=== PATIENT | male | born 1985 ===

== ENCOUNTER 2018-06-16 22:23 | Emergency (ER) | payer OTHER ==
[2018-06-16 22:32] VITALS: TEMP 98.5; BMI 26.3
--- NOTE | 2018-06-16 22:42 | ED PDOC ---
Arrival/HPI - General Chief Complaint: Substance Abuse Time Seen by Provider: 06/16/18 22:40 Historian: Patient - History of Present Illness Narrative History of Present Illness (Text): 06/16/18 22:41 33 year old male, with no significant past medical history, presents to the emergency department found by EMS on the street unresponsive s/p overdose. Patient was administered Narcan 2mg intranasally upon arrival. Patient became responsive in the Emergency room. Patient states he was drinking tonight and also admits to snorting a bag of heroin. Patient denies any complaints. Patient denies any fever, chills, chest pain, shortness of breath, nausea, vomiting, diarrhea, urinary symptoms, back pain, neck pain, headache, dizziness, or any other complaints. Symptom Onset: Gradual Symptom Course: Improving Activities at Onset: Light Context: Street Past Medical History - Provider Review Nursing Documentation Reviewed: Yes - Psychiatric Hx Substance Use: Yes (heroin today) Family/Social History - Physician Review Nursing Documentation Reviewed: Yes Family/Social History: No Known Family HX Smoking Status: Light Smoker < 10 Cigarettes Daily Hx Alcohol Use: Yes Frequency of alcohol use: Socially Hx Substance Use: Yes (heroin today) Allergies/Home Meds Allergies/Adverse Reactions: Allergies No Known Allergies Allergy (Verified 06/16/18 22:32) Review of Systems - Physician Review All systems were reviewed & negative as marked: Yes - Review of Systems Constitutional: absent: Fevers, Other (Chills) Respiratory: absent: SOB Cardiovascular: absent: Chest Pain Gastrointestinal: absent: Diarrhea, Nausea, Vomiting Genitourinary Male: absent: Dysuria, Frequency, Hematuria Musculoskeletal: absent: Back Pain, Neck Pain Neurological: absent: Headache, Dizziness Physical Exam - Physical Exam Narrative Physical Exam (Text): Gen: VS reviewed, alert, well developed, well nourished, nontoxic, mild distress. ENT: normal pharynx. Eye: EOMI, PERRL. Neck: no JVD, supple, no adenopathy. CV: Tachycardic, no rubs, no murmur, no gallops, S1, S2, pulses equal and strong. Pulm: Mild diffuse course breath sounds. no distress, clear to auscultation, no wheeze, no rhonchi, no rales. Abd: soft, nontender, no guarding, no rebound, no rigidity, normal bowel sounds. Ext: no edema. Skin: good color, no rash, no cyanosis. Psych: responds appropriately to questions, normal affect. Neuro: oriented x 3, CN2-12 intact grossly, motor intact, sensation intact. Vital Signs Reviewed: Yes Vital Signs Temp Pulse Resp BP Pulse Ox 06/16/18 22:31 98.5 F 102 H 14 128/67 92 L Temperature: Afebrile Blood Pressure: Normal Pulse: Tachycardic Respiratory Rate: Normal Medical Decision Making ED Course and Treatment: 06/16/18 22:41 Impression: 33 year old male presents for overdose after drinking tonight and snorting one bag of heroin. Plan: -- Chest X-ray -- Reassess and disposition Progress Notes: 06/17/18 00:31 patient was seen for heroin overdose, woke up after intranasal dose of narcan, patient not suicidal, patient remained stable throughout ED course and does not exhibit excessive drowsiness from heroin ingestion. Patient informed to seek help regarding substance abuse. - RAD Interpretation Narrative RAD Interpretations (Text): 06/17/18 00:31 cxr my read: no focal infiltrate, no ptx, no cardiomegaly Radiology Orders: 06/16/18 22:40 CXR [CHEST TWO VIEWS (PA/LAT)] [RAD] Stat - EKG Interpretation Interpreted by ED Physician: Yes - Scribe Statement The provider has reviewed the documentation as recorded by the Matty Arenas Provider Scribe Attestation: All medical record entries made by the Scribe were at my direction and personally dictated by me. I have reviewed the chart and agree that the record accurately reflects my personal performance of the history, physical exam, medical decision making, and the department course for this patient. I have also personally directed, reviewed, and agree with the discharge instructions and disposition. Disposition/Present on Arrival - Present on Arrival Any Indicators Present on Arrival: No History of DVT/PE: No History of Uncontrolled Diabetes: No Urinary Catheter: No History of Decub. Ulcer: No History Surgical Site Infection Following: None - Disposition Have Diagnosis and Disposition been Completed?: Yes Diagnosis: Heroin abuse Disposition: HOME/ ROUTINE Disposition Time: 00:32 Patient Plan: Discharge Condition: STABLE Discharge Instructions (ExitCare): Drug Abuse and Drug Addiction (DC) Prescriptions: Naloxone HCl [Narcan] 4 mg NS ONCE #2 spray Forms: [employer] Connect ([place]an)
[2018-06-17 01:12] VITALS: BP 116/52; PULSE 82; RESP 18; O2SAT 96
--- NOTE | 2018-06-17 09:05 | RAD ---
Date of service: 06/17/2018 HISTORY: pneumonia COMPARISON: No prior. TECHNIQUE: Chest PA and lateral FINDINGS: LUNGS: No active pulmonary disease. PLEURA: No significant pleural effusion identified. No pneumothorax apparent. CARDIOVASCULAR: Normal. OSSEOUS STRUCTURES: No significant abnormalities. VISUALIZED UPPER ABDOMEN: Normal. OTHER FINDINGS: None. IMPRESSION: No active disease.
== END 2018-06-17 01:11 | disposition home or self-care (01) ==
LOC: ED 22:23
DX: F11.10 Opioid abuse, uncomplicated (principal)